=== PATIENT | female | born 1935 | race Caucasian/White ===

== ENCOUNTER → 2019-02-21 | Outpatient (CLI) | payer MEDICARE, OTHER ==
[2019-02-21 10:17] LABS: ANION GAP 9 (5-13); BLOOD UREA NITROGEN 22 mg/dl (7-20); CALCIUM 9.1 mg/dl (8.4-10.2); CARBON DIOXIDE 28 mmol/L (21-31); CHLORIDE 103 mmol/L (97-110); CREATININE 0.77 mg/dl (0.44-1.00); GLUCOSE 106 mg/dl (70-220); POTASSIUM 4.2 mmol/L (3.5-5.1); SODIUM 140 mmol/L (135-144)
[2019-02-21] MEDS: METOPROLOL 5 MG INJ (11:55)
[2019-02-21] MEDS: NITROGLYCERIN AEROSOL (4.9 GM) SL (12:00)
[2019-02-21] MEDS: NITROGLYCERIN AEROSOL (4.9 GM) (12:00)
[2019-02-21] MEDS: SOD CHLORIDE 0.9% 100 ML (12:18)
[2019-02-21] MEDS: IOHEXOL 100 ML (12:19)
== END | disposition home or self-care (01) ==
LOC: LAB 09:34
DX: R07.9 Chest pain, unspecified (principal)
CPT/HCPCS: 75571; 75571-59; 75574; 80048